=== PATIENT | female | born 1975 ===

== ENCOUNTER 2019-10-05 05:40 | Outpatient (CLI) | payer OTHER ==
[~2019-10-05] VITALS: Ht 160 cm; Wt 94.0 kg
[2019-10-05] MEDS ORDERED: ARIP5TAB57 PO (11:34)
[2019-10-05] MEDS ORDERED: LISI-552 PO (11:34)
[2019-10-05] MEDS ORDERED: PRAV20TA3 PO (11:34)
[2019-10-05] MEDS ORDERED: CYCL10TA9 PO (11:34)
[2019-10-05] MEDS ORDERED: PROM25TA14 PO (11:34)
[2019-10-05] MEDS ORDERED: EMPA10TA PO (11:34)
[2019-10-05] MEDS ORDERED: BUSP5TAB59 PO (11:34)
[2019-10-05] MEDS ORDERED: METO50TA15 PO (11:34)
[2019-10-05] MEDS ORDERED: OMEP20CA18 PO (11:34)
[2019-10-05] MEDS ORDERED: CITA40TA19 PO (11:34)
[2019-10-05] MEDS ORDERED: AMIT25TA9 PO (11:34)
[2019-10-05] MEDS ORDERED: METF-399 PO (11:34)
== END 2019-10-05 14:13 | disposition home or self-care (01) ==
LOC: PREOP 05:40
PROVIDERS: ATTEND Surgery
DX: Z01.818 Encounter for other preprocedural examination (principal)